=== PATIENT | male | born 1950 | race Caucasian/White ===

== ENCOUNTER 2022-06-24 21:50 | Emergency (ER) | payer OTHER ==
[~2022-06-24] VITALS: Ht 167.6 cm; Wt 63.0 kg
[2022-06-24] MEDS ORDERED: ST. JOSEPH ASPI81 M1 PO (22:27)
[2022-06-24] MEDS ORDERED: ALENDRONATE SOD70 MG PO (22:27)
[2022-06-24] MEDS ORDERED: ZESTRIL40 MG PO (22:29)
[2022-06-24] MEDS ORDERED: LIPITOR80 MG PO (22:29)
[2022-06-24] MEDS ORDERED: CLEOCIN T30 ML TOP (22:40)
[2022-06-24] MEDS ORDERED: CLOBETASOL PROP15 G1 TOP (22:41)
[2022-06-24] MEDS ORDERED: ARNUITY ELLIPT50 MCG (22:42)
[2022-06-24] MEDS ORDERED: CALCIUM + D3 E1 EACH PO (22:43)
--- NOTE | 2022-06-25 14:15 | EKG ---
[facility] [address] [facility] [place] [address] Signed Normal sinus rhythm Normal ECG No previous ECGs available Confirmed by ISADORA ZAVALA MD ([id number]) on 06/25/2022 2:14:53 PM Electronically Signed By: ISADORA ZAVALA MD 06/25/22 1415 PATIENT NAME: EMILY BELLE STEVO Electrocardiogram DATE OF : 46 PHYSICIAN: ISADORA ZAVALA MD REPORT #: [id number] REPORT IS CONFIDENTIAL AND NOT TO BE RELEASED WITHOUT AUTHORIZATION
== END 2022-06-25 01:35 | disposition home or self-care (01) ==
LOC: ED 21:50
DX: J10.1 Influenza due to other identified influenza virus with other respiratory manifestations (principal); J18.9 Pneumonia, unspecified organism; D69.6 Thrombocytopenia, unspecified; I10 Essential (primary) hypertension; Z79.899 Other long term (current) drug therapy; Z79.82 Long term (current) use of aspirin; Z20.822 Contact with and (suspected) exposure to COVID-19
CPT/HCPCS: 36415; 71045; 80053; 81001; 83605; 85025; 87502; 93005; 93010; 96365; 99285-25; A9270; J0696; J7030; U0003

== ENCOUNTER 2023-03-15 18:35 | Emergency (ER) | payer OTHER ==
[~2023-03-15] VITALS: Ht 167.6 cm; Wt 68.4 kg
--- OUTSIDE RECORDS SUMMARY | ~2023-03-15 | XMS | Continuity of Care Document ---
Demographics + + + | Address | [address] | | | [place] [address] | + + + | Preferred Language | Unknown | + + + | Marital Status | | + + + | Catholic Affiliation | Unknown | + + + | Race | White | + + + | Ethnic Group | Not or | + + + Author + + + | Author | [facility] | + + + | Organization | [facility] | + + + | Address | [address] | | | [place] [address] | + + + | Phone | | + + + Care Team Providers + + + + | Care Assistant Plant Control Operator Name | Role | Phone | + + + + Unavailable | Unavailable | + + + + Unavailable | Unavailable | + + + + Allergies and Intolerances + + + + + + | date | description | facility | reaction | severity | + + + + + + | (no date) | No Known Drug | [facility] | (no reaction) | (no severity) | | | Allergies | | | | + + + + + + Encounters No information. Functional Status No information. Immunizations No information. Medications + + + + | date | description | facility | + + + + | 2022-06-25 00:00 | Fluticasone Furoate | [facility] | + + + + | 2022-06-25 00:00 | LISINOPRIL | [facility] | + + + + | 2022-06-25 00:00 | ASPIRIN | [facility] | + + + + | 2022-06-25 00:00 | ATORVASTATIN | [facility] | + + + + | 2022-06-25 00:00 | CLINDAMYCIN PHOSPHATE | [facility] | + + + + | 2022-06-25 00:00 | CLOBETASOL PROPIONATE | [facility] | + + + + | 2022-06-25 00:00 | ALENDRONATE SODIUM | [facility] | + + + + Problems + + + + | date | description | facility | + + + + | 2022-06-25 00:00 | Thrombocytopenia | [facility] | + + + + | 2022-06-25 00:00 | Influenza due to influenza | [facility] | | | virus, type A, human | | + + + + | 2022-06-25 00:00 | Left lower lobe pneumonia | [facility] | + + + + | 2022-10-07 08:49 | OTHER [facility] | [facility] | + + + + | 2022-10-14 14:31 | OTHER [facility] | [facility] | + + + + | 2022-11-12 07:00 | OTHER [facility] | [facility] | + + + + | 2022-12-11 09:29 | OTHER [facility] | [facility] | + + + + | 2023-01-12 09:30 | OTHER [facility] | [facility] | + + + + Procedures No information. Results/Labs +--------+--------+ +---------+--------+---------+ | test | date | facility | value | unit | notes | +--------+--------+ +---------+--------+---------+ + + | Result panel 1 | + + + + + + + + + | | 2022-06-24 | [facility] | NEGATIVE | (missing) | (missing) | | (unavailable | 22[facility]10:08 [facility] | | | + + + + + + + + + | Result panel 2 | + + + + + + + + + | | 2022-06-24 | [facility] | POSITIVE | (missing) | (missing) | | (unavailable | [facility]10:08 [facility] | | | | + + + + + + + + + | Result panel 3 | + + + + + + + + + | | 2022-06-24 | [facility] | NEGATIVE | (missing) | (missing) | | (unavailable | [facility]10:08 [facility] | | | | + + + + + + + + + | Result panel 4 | + + + + + + + + + | | 2022-06-24 | [facility] | NEGATIVE | (missing) | (missing) | | (unavailable | [facility]10:08 [facility] | | | | + + + + + + + + + | Result panel 5 | + + + + + +-------+ + + | | 2022-06-24 | [facility] | 9.6 | (missing) | (missing) | | (unavailable | [facility]13:08 [facility] | | | | + + + +-------+ + + + + | Result panel 6 | + + + + + +--------+ + + | | 2022-06-24 | [facility] | 86.2 | (missing) | (missing) | | (unavailable | [facility]13:08 [facility] | | | | + + + +--------+ + + + + | Result panel 7 | + + + + + +-------+ + + | | 2022-06-24 | [facility] | 5.5 | (missing) | (missing) | | (unavailable | [facility]13:08 [facility] | | | | + + + +-------+ + + + + | Result panel 8 | + + + + + +-------+ + + | | 2022-06-24 | [facility] | 7.8 | (missing) | (missing) | | (unavailable | ::08 | [facility] | | | | + + + +-------+ + + + + | Result panel 9 | + + + + + +-------+ + + | | 2022-06-24 | [facility] | 0.0 | (missing) | (missing) | | (unavailable | ::08 | [facility] | | | | + + + +-------+ + + + + | Result panel 10 | + + + + + +-------+ + + | | 2022-06-24 | [facility] | 0.5 | (missing) | (missing) | | (unavailable | ::08 | [facility] | | | | + + + +-------+ + + + + | Result panel 11 | + + + + + +--------+ + + | | 2022-06-24 | [facility] | 4.65 | (missing) | (missing) | | (unavailable | ::08 | [facility] | | | + + + +--------+ + + + + | Result panel 12 | + + + + + +--------+ + + | | 2022-06-24 | [facility] | 13.6 | (missing) | (missing) | | (unavailable | [facility]13:08 [facility] | | | + + + +--------+ + + + + | Result panel 13 | + + + + + +-------+---------+ + | | 2022-06-24 | [facility] | 177 | mg/dL | (missing) | | (unavailable | 22:13:08 [facility] | | | | + + + +-------+---------+ + + + | Result panel 14 | + + + + + +------+---------+ + | | 2022-06-24 | [facility] | 21 | mg/dL | (missing) | | (unavailable | 22:13:08 [facility] | | | | + + + +------+---------+ + + + | Result panel 15 | + + + + + +--------+---------+ + | | 2022-06-24 | [facility] | 1.10 | mg/dL | (missing) | | (unavailable | [facility]:13:08 [facility] | | | + + + +--------+---------+ + + + | Result panel 16 | + + + + + +------+ + + | | 2022-06-24 | [facility] | 70 | (missing) | (missing) | | (unavailable | [facility]13:08 [facility] | | | + + + +------+ + + + + | Result panel 17 | + + + + + +---------+ + + | | 2022-06-24 | [facility] | 19.09 | (missing) | (missing) | | (unavailable | [facility]13:08 [facility] | | | + + + +---------+ + + + + | Result panel 18 | + + + + + +--------+ + + | | 2022-06-24 | [facility] | 39.3 | (missing) | (missing) | | (unavailable | [facility]:13:08 [facility] | | | | + + + +--------+ + + + + | Result panel 19 | + + + + + +-------+ + + | | 2022-06-24 | [facility] | 137 | (missing) | (missing) | | (unavailable | [facility]13:08 [facility] | | | + + + +-------+ + + + + | Result panel 20 | + + + + + +-------+ + + | | 2022-06-24 | [facility] | 3.6 | (missing) | (missing) | | (unavailable | 22:13:08 [facility] | | | | + + + +-------+ + + + + | Result panel 21 | + + + + + +-------+ + + | | 2022-06-24 | [facility] | 101 | (missing) | (missing) | | (unavailable | 22:13:08 [facility] | | | + + + +-------+ + + + + | Result panel 22 | + + + + + +------+ + + | | 2022-06-24 | [facility] | 27 | (missing) | (missing) | | (unavailable | 22:13:08 [facility] | | | | + + + +------+ + + + + | Result panel 23 | + + + + + +--------+ + + | | 2022-06-24 | [facility] | 12.6 | (missing) | (missing) | | (unavailable | [facility]:13:08 [facility] | | | + + + +--------+ + + + + | Result panel 24 | + + + + + +-------+---------+ + | | 2022-06-24 | [facility] | 8.8 | mg/dL | (missing) | | (unavailable | [facility]:13:08 [facility] | | | + + + +-------+---------+ + + + | Result panel 25 | + + + + + +-------+ + + | | 2022-06-24 | [facility] | 6.9 | (missing) | (missing) | | (unavailable | [facility]:13:08 [facility] | | | + + + +-------+ + + + + | Result panel 26 | + + + + + +-------+ + + | | 2022-06-24 | [facility] | 3.2 | (missing) | (missing) | | (unavailable | [facility]13:08 [facility] | | | + + + +-------+ + + + + | Result panel 27 | + + + + + +-------+ + + | | 2022-06-24 | [facility] | 3.7 | (missing) | (missing) | | (unavailable | [facility]13:08 [facility] | | | + + + +-------+ + + + + | Result panel 28 | + + + + + +--------+ + + | | 2022-06-24 | [facility] | 0.86 | (missing) | (missing) | | (unavailable | :13:08 [facility] | | | | + + + +--------+ + + + + | Result panel 29 | + + + + + +--------+ + + | | 2022-06-24 | [facility] | 84.5 | (missing) | (missing) | | (unavailable | 22:13:08 [facility] | | | + + + +--------+ + + + + | Result panel 30 | + + + + + +-------+ + + | | 2022-06-24 | [facility] | 1.5 | (missing) | (missing) | | (unavailable | [facility]:13:08 [facility] | | | + + + +-------+ + + + + | Result panel 31 | + + + + + +------+ + + | | 2022-06-24 | [facility] | 26 | (missing) | (missing) | | (unavailable | 22:13:08 [facility] | | | + + + +------+ + + + + | Result panel 32 | + + + + + +------+ + + | | 2022-06-24 | [facility] | 32 | (missing) | (missing) | | (unavailable | 22:13:08 [facility] | | | + + + +------+ + + + + | Result panel 33 | + + + + + +------+ + + | | 2022-06-24 | [facility] | 88 | (missing) | (missing) | | (unavailable | [facility]:13:08 [facility] | | | + + + +------+ + + + + | Result panel 34 | + + + + + +-------+ + + | | 2022-06-24 | [facility] | 1.9 | (missing) | (missing) | | (unavailable | [facility]:13:08 [facility] | | | + + + +-------+ + + + + | Result panel 35 | + + + + + +--------+ + + | | 2022-06-24 | [facility] | 29.2 | (missing) | (missing) | | (unavailable | 22::08 [facility] | | | | + + + +--------+ + + + + | Result panel 36 | + + + + + +--------+ + + | | 2022-06-24 | [facility] | 34.6 | (missing) | (missing) | | (unavailable | [facility]:13:08 [facility] | | | + + + +--------+ + + + + | Result panel 37 | + + + + + +--------+ + + | | 2022-06-24 | [facility] | 13.5 | (missing) | (missing) | | (unavailable | [facility]:13:08 [facility] | | | + + + +--------+ + + + + | Result panel 38 | + + + + + +------+ + + | | 2022-06-24 | [facility] | 99 | (missing) | (missing) | | (unavailable | ::08 | [facility] | | | | + + + +------+ + + + + | Result panel 39 | + + + + + + + + + | | 2022-06-24 | [facility] | YELLOW | (missing) | (missing) | | (unavailable | 22:50:08 [facility] | | | | + + + + + + + + + | Result panel 40 | + + + + + +---------+ + + | | 2022-06-24 | [facility] | CLEAR | (missing) | (missing) | | (unavailable | 22:50:08 [facility] | | | | + + + +---------+ + + + + | Result panel 41 | + + + + + + + + + | | 2022-06-24 | [facility] | MODERATE | (missing) | (missing) | | (unavailable | 22:50:08 [facility] | | | | + + + + + + + + + | Result panel 42 | + + + + + + + + + | | 2022-06-24 | [facility] | NEGATIVE | (missing) | (missing) | | (unavailable | 22:50:08 [facility] | | | | + + + + + + + + + | Result panel 43 | + + + + + +---------+ + + | | 2022-06-24 | [facility] | TRACE | (missing) | (missing) | | (unavailable | 22:50:08 [facility] | | | | + + + +---------+ + + + + | Result panel 44 | + + + + + + + + + | | 2022-06-24 | [facility] | >=1.030 | (missing) | (missing) | | (unavailable | [facility]:50:08 [facility] | | | | + + + + + + + + + | Result panel 45 | + + + + + +---------+ + + | | 2022-06-24 | [facility] | SMALL | (missing) | (missing) | | (unavailable | [facility]:50:08 [facility] | | | | + + + +---------+ + + + + | Result panel 46 | + + + + + +-------+ + + | | 2022-06-24 | [facility] | 5.5 | (missing) | (missing) | | (unavailable | [facility]:50:08 [facility] | | | | + + + +-------+ + + + + | Result panel 47 | + + + + + +------+ + + | | 2022-06-24 | [facility] | 30 | (missing) | (missing) | | (unavailable | 22:50:08 [facility] | | | | + + + +------+ + + + + | Result panel 48 | + + + + + + + + + | | 2022-06-24 | [facility] | NORMAL | (missing) | (missing) | | (unavailable | [facility]:50:08 [facility] | | | | + + + + + + + + + | Result panel 49 | + + + + + + + + + | | 2022-06-24 | [facility] | NEGATIVE | (missing) | (missing) | | (unavailable | [facility]:50:08 [facility] | | | | + + + + + + + + + | Result panel 50 | + + + + + + + + + | | 2022-06-24 | [facility] | NEGATIVE | (missing) | (missing) | | (unavailable | [facility]:50:08 [facility] | | | | + + + + + + + + + | Result panel 51 | + + + + + +-------+ + + | | 2022-06-24 | [facility] | 2-3 | (missing) | (missing) | | (unavailable | [facility]:50:08 [facility] | | | | + + + +-------+ + + + + | Result panel 52 | + + + + + +-------+ + + | | 2022-06-24 | [facility] | 0-1 | (missing) | (missing) | | (unavailable | [facility]:50:08 [facility] | | | | + + + +-------+ + + + + | Result panel 53 | + + + + + + + + + | | 2022-06-24 | [facility] | SQUAMOUS 1+ | (missing) | (missing) | | (unavailable | 22:50:08 [facility] | | | | + + + + + + + + + | Result panel 54 | + + + + + + + + + | | 2022-06-24 | [facility] | NONE SEEN | (missing) | (missing) | | (unavailable | [facility]:50:08 [facility] | | | | + + + + + + + + + | Result panel 55 | + + + + + + + + + | | 2022-06-24 | [facility] | NONE SEEN | (missing) | (missing) | | (unavailable | [facility]:50:08 [facility] | | | | + + + + + + + + + | Result panel 56 | + + + + + + + + + | | 2022-06-24 | [facility] | NONE SEEN | (missing) | (missing) | | (unavailable | [facility]50:08 [facility] | | | + + + + + + + + + | Result panel 57 | + + + + + +------+ + + | | 2022-06-24 | [facility] | No | (missing) | (missing) | | (unavailable | [facility]50:08 [facility] | | | | + + + +------+ + + + + | Result panel 58 | + + + + + + + + + | | 2022-06-24 | [facility] | CLEAN CATCH | (missing) | (missing) | | (unavailable | [facility]:50:08 [facility] | | | + + + + + + + Social History + + + + | date | description | facility | + + + + | 2022-06-25 00:00 | Unknown if ever smoked | [facility] | + + + + Vital Signs + + + +---------+ | date | measurement | value | units | + + + +---------+ | 2022-06-24 00:00 | BMI | 22.4 | kg/m2 | + + + +---------+ | 2022-06-24 00:00 | height_metric | 167.64 | cm | + + + +---------+ | 2022-06-24 00:00 | height_standard | 66 | in | + + + +---------+ | 2022-06-24 00:00 | weight_metric | 63 | kg | + + + +---------+ | 2022-06-24 00:00 | weight_standard | 138.89 | lb | + + + +---------+ | 2022-06-25 00:00 | BP_diastolic | 60 | mmHg | + + + +---------+ | 2022-06-25 00:00 | BP_systolic | 133 | mmHg | + + + +---------+ | 2022-06-25 00:00 | heart_rate | 77 | /min | + + + +---------+ | 2022-06-25 00:00 | o2_saturation | 95 | % | + + + +---------+ | 2022-06-25 00:00 | respiration_rate | 19 | /min | + + + +---------+ | 2022-06-25 00:00 | temperature_metric | 37.5 | C | | | | | | + + + +---------+ | 2022-06-25 00:00 | | 99.5 | F | | | temperature_standar | | | | | d | | | + + + +---------+"
--- OUTSIDE RECORDS SUMMARY | ~2023-03-15 | XMS | Continuity of Care Document ---
Demographics + + + | Address | [address] | | | [place] [address] | + + + | Preferred Language | Unknown | + + + | Marital Status | | + + + | Jainism Affiliation | Unknown | + + + | Race | White | + + + | Ethnic Group | Not or | + + + Author + + + | Author | [facility] | + + + | Organization | [facility] | + + + | Address | [address] | | | [place] [address] | + + + | Phone | | + + + Care Team Providers + + + + | Care Orchid Superintendent Name | Role | Phone | + [...] | Unknown if ever smoked | [facility] | + + + + Vital Signs [...]
[~2023-03-15 18:35] MED LIST: ALENDRONATE SOD70 MG PO; ARNUITY ELLIPT50 MCG; CALCIUM + D3 E1 EACH PO; CLEOCIN T30 ML TOP; CLOBETASOL PROP15 G1 TOP; LIPITOR80 MG PO; ST. JOSEPH ASPI81 M1 PO; ZESTRIL40 MG PO
[2023-03-15 18:51] LABS: BASOPHILS 1.3 % (0-2); EOSINOPHILS 7.2 % (0-6); HEMATOCRIT 42.6 % (35.0-50.0); HEMOGLOBIN 14.5 g/dL (12.0-18.0); LYMPHOCYTES 26.3 % (24-44); MCH 29.9 (27-36); MCV 87.7 fl (81-99); MONOCYTES 7.4 % (0-12); NEUTROPHILS 57.8 % (39-80); PLATELET COUNT 168 K/uL (140-440); RBC 4.86 M/ul (4.3-5.7); RDW 14.1 (10.5-15.0)
[2023-03-15 18:59] LABS: INR 1.02 (0.80-1.30); PARTIAL THROMBOPLASTIN TIME 23.5 Sec (22.9-41.3); PROTIME 12.9 Sec (11.2-14.2)
[2023-03-15 19:03] LABS: ALBUMIN/GLOBULIN RATIO 1.18 (1.1-2.4); ANION GAP 13.4 (7-21); BILIRUBIN, TOTAL 2.8 ng/dL (0.2-1.0); BUN/CREATININE RATIO 19.44 (6.0-28.6); CALCIUM 9.7 mg/dL (8.5-10.1); CREATININE, SERUM 1.08 mg/dL (0.70-1.30); POTASSIUM 3.4 mmol/L (3.5-5.1); PROTEIN, TOTAL 7.4 g/dL (6.4-8.2)
[2023-03-15 19:37] LABS: INFLUENZA B NAA NEGATIVE (NEGATIVE); RESPIRATORY SYNCYTIAL VIR NAA NEGATIVE (NEGATIVE)
[2023-03-15 19:45] VITALS: BP 92/54
--- NOTE | 2023-03-15 23:16 | EKG ---
[facility] [address] [facility] [place] [address] Signed Normal sinus rhythm Prolonged QT Abnormal ECG When compared with ECG of 24-JUN-2022 22:14, QRS duration has increased QT has lengthened Confirmed by Michelle Elder MD () on 03/15/2023 11:16:11 PM Electronically Signed By: MICHELLE ELDER MD 03/15/23 2316 PATIENT NAME: YOSHIEMILYBIRGIT WHITESIDE Electrocardiogram DATE OF : 46 PHYSICIAN: MICHELLE ELDER MD REPORT #: [id number] REPORT IS CONFIDENTIAL AND NOT TO BE RELEASED WITHOUT AUTHORIZATION
== END 2023-03-15 19:55 | disposition short-term general hospital (02) ==
LOC: ED 18:35
PROVIDERS: Emergency Medicine
DX: I61.4 Nontraumatic intracerebral hemorrhage in cerebellum (principal); R40.4 Transient alteration of awareness; I10 Essential (primary) hypertension; Z79.899 Other long term (current) drug therapy; Z79.82 Long term (current) use of aspirin; Z20.822 Contact with and (suspected) exposure to COVID-19
CPT/HCPCS: 31500; 36415; 51702; 70450; 70496; 70498; 71045; 80053; 85025; 85610; 85730; 87502; 93005; 93010; 99285-25; C9803; J0330; J2001; J2405; J2704; J3010; J7060; Q9967; U0002

== ENCOUNTER 2025-05-24 21:27 | Emergency (ER) | payer OTHER | END 2025-05-25 02:31 | disposition home or self-care (01) | LOC: ED 21:27 | DX: E86.0 Dehydration (principal); I10 Essential (primary) hypertension; Z79.51 Long term (current) use of inhaled steroids; Z79.82 Long term (current) use of aspirin ==